=== PATIENT | male | born 1960 | race Two or more races ===

== ENCOUNTER 2019-02-15 19:10 | Inpatient (IN) | payer SELFPAY ==
[~2019-02-15] VITALS: Ht 167.6 cm; Wt 77.1 kg
[2019-02-15 19:30] VITALS: BP 123/85
[2019-02-15] MEDS ORDERED: Morphine Sulfate 4mg/ml Inj (IV USE ONLY) IVP ONE ×2 (19:30→20:15)
[2019-02-15] MEDS ORDERED: Isovue-300 100ml vial INJ PRN (19:30)
--- NOTE | 2019-02-15 19:30 | NUR ---
ED Nurse Note: Patient walked in to ER from home c/o severe abdominal and anal pain 06/01. Per patient he had too much cocaine las 2 days, and that is why he has severe abdominal pain. Patient states that he has laceration on his penis due to friquent masturbation, and laceration on his anus due to insertion light bulb inside of his rectum 2 days ago. AAO x4, VSS at this time, skin is dry warm to touch. Patient's anus was assessed by RN, no laceration noticed. Addendum: 02/15/19 at 2130 by KHANH Patient also states that light bulb broke while in rectum.
--- NOTE | 2019-02-15 19:53 | Emergency Room Report ---
History of Present Illness General Chief Complaint: Abdominal Pain Source: Patient Present Illness HPI The patient presents with abdominal and rectal pain. Apparently he was masturbating using a light bulb inserting in his rectum and it broke two days ago. He has had rectal pain and abdominal pain since that time. Denies any fevers or chills. There is been some rectal bleeding. He reports the pain 9/ 10 at this time and constant. He also has pain diffusely through his abdomen. He denies any vomiting. There is no chest pain. The patient also admits to abusing crack cocaine. Denies suicidal or homicidal ideation at this time. He did try to kill himself in 2000 by jumping off a building and fracturing his back. No fevers, chills, chest pain, palpitations, nausea, vomiting, dysuria, shortness of breath, visual changes, headache. 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 Nursing Documentation: PMH: Agreed; PSxH: Agreed Nursing Documentation-PMH Past Medical History: No Stated History Review of Systems All Other Systems: negative except mentioned in HPI Physical Exam Vital Signs Date Time Temp Pulse Resp B/P (MAP) Pulse Ox O2 Delivery O2 Flow Rate FiO2 02/15/19 19:15 97.5 67 18 123/85 (98) 96 Room Air Sp02 EP Interpretation: reviewed, normal General Appearance: well appearing, no apparent distress, GCS 15 Head: normocephalic Eyes: bilateral eye PERRL, bilateral eye conjunctivae pale ENT: moist mucus membranes Neck: supple Respiratory: lungs clear, normal breath sounds Cardiovascular #1: regular rate, rhythm Cardiovascular #2: 2+ radial (R) Gastrointestinal: normal inspection, normal bowel sounds, no mass, non- distended, no guarding, no rebound, tenderness - Diffuse Rectal: decreased tone, heme positive stool, hemorrhoids, other - Rectal tenderness Genitourinary: no CVA tenderness Musculoskeletal: back normal, gait/station normal, normal range of motion Neurologic: alert, oriented x3, grossly normal Psychiatric: mood/affect normal, no suicidal/homicidal ideation Skin: normal inspection, warm/dry Medical Decision Making Diagnostic Impression: Primary Impression: Rectal trauma Qualified Codes: S36.60XA - Unspecified injury of rectum, initial encounter Additional Impression: Cocaine abuse ER Course Patient presents with abdominal and rectal pain with rectal trauma. Differential includes bowel perforation, rectal trauma, abscess, foreign body amongst others. Patient will be evaluated week EKG, chest x-ray, CT of the abdomen and pelvis and labs. The patient will receive IV hydration and analgesia. Antibiotics may be indicated. Abdomen is non-surgical at this time. EKG NSR. Chest x-ray with pleural disease right side. Labs with normal white count. Tox positive for cocaine. CT the abdomen as of her duodenal thickening no mention of rectal masses or free air. Analgesia administered as well as IV hydration. In addition IV antibiotics begun. Rectal lidocaine inserted. Due to the nature of the history of the injury the patient is admitted for observation. Dr. Lopez and Dr. Soria were contacted. Laboratory Tests Test 02/15/19 19:25 02/15/19 19:40 Sodium Level 139 MMOL/L (136-145) Potassium Level 4.4 MMOL/L (3.5-5.1) Chloride Level 107 MMOL/L (98-107) Carbon Dioxide Level 28 MMOL/L (21-32) Anion Gap 5 mmol/L (5-15) Blood Urea Nitrogen 11 mg/dL (7-18) Creatinine 0.7 MG/DL (0.55-1.30) Estimate Glomerular Filtration Rate > 60 mL/min (>60) Glucose Level 101 MG/DL (74-106) Calcium Level 8.7 MG/DL (8.5-10.1) Total Bilirubin 0.5 MG/DL (0.2-1.0) Aspartate Amino Transferase (AST) 34 U/L (15-37) Alanine Aminotransferase (ALT) 46 U/L (12-78) Alkaline Phosphatase 77 U/L (46-116) Total Creatine Kinase 151 U/L (26-308) Total Protein 6.3 G/DL (6.4-8.2) L Albumin 3.1 G/DL (3.4-5.0) L Globulin 3.2 g/dL Albumin/Globulin Ratio 1.0 (1.0-2.7) Lipase 219 U/L (73-393) Serum Alcohol < 3 mg/dL White Blood Count 4.1 K/UL (4.8-10.8) L Red Blood Count 4.72 M/UL (4.70-6.10) Hemoglobin 14.9 G/DL (14.2-18.0) Hematocrit 42.1 % (42.0-52.0) Mean Corpuscular Volume 89 FL (80-99) Mean Corpuscular Hemoglobin 31.6 PG (27.0-31.0) H Mean Corpuscular Hemoglobin Concent 35.4 G/DL (32.0-36.0) Red Cell Distribution Width 10.4 % (11.6-14.8) L Platelet Count 231 K/UL (150-450) Mean Platelet Volume 6.2 FL (6.5-10.1) L Neutrophils (%) (Auto) 57.4 % (45.0-75.0) Lymphocytes (%) (Auto) 28.5 % (20.0-45.0) Monocytes (%) (Auto) 10.7 % (1.0-10.0) H Eosinophils (%) (Auto) 2.0 % (0.0-3.0) Basophils (%) (Auto) 1.4 % (0.0-2.0) Prothrombin Time 10.4 SEC (9.30-11.50) Prothrombin Time INR 1.0 (0.9-1.1) PTT 27 SEC (23-33) Urine Color Yellow Urine Appearance Clear Urine pH 6.5 (4.5-8.0) Urine Specific [place] 1.030 (1.005-1.035) Urine Protein 1+ (NEGATIVE) H Urine Glucose (UA) Negative (NEGATIVE) Urine Ketones 1+ (NEGATIVE) H Urine Blood 1+ (NEGATIVE) H Urine Nitrite Negative (NEGATIVE) Urine Bilirubin Negative (NEGATIVE) Urine Urobilinogen 4 MG/DL (0.0-1.0) H Urine Leukocyte Esterase Negative (NEGATIVE) Urine RBC 5-10 /HPF (0 - 0) H Urine WBC 0 /HPF (0 - 0) Urine Squamous Epithelial Cells Occasional /LPF Urine Bacteria Few /HPF (NONE) Troponin I 0.000 ng/mL (0.000-0.056) Urine Opiates Screen Negative (NEGATIVE) Urine Barbiturates Screen Negative (NEGATIVE) Phencyclidine (PCP) Screen Negative (NEGATIVE) Urine Amphetamines Screen Negative (NEGATIVE) Urine Benzodiazepines Screen Negative (NEGATIVE) Urine Cocaine Screen Positive (NEGATIVE) H Urine Marijuana (THC) Screen Negative (NEGATIVE) EKG Diagnostic Results Rate: normal Rhythm: NSR ST Segments: no acute changes Rhythm Strip Diag. Results EP Interpretation: yes Rhythm: NSR, no PVC's, no ectopy Chest X-Ray Diagnostic Results Chest X-Ray Diagnostic Results : Chest X-Ray Ordered: Yes # of Views/Limited/Complete: 1 View Indication: Other EP Interpretation: Yes Interpretation: no effusion, no pneumothorax, other - pleural process R with atelectasis Impression: Other Electronically Signed by: Electronically signed by Chaitanya Carter MD CT/MRI/US Diagnostic Results CT/MRI/US Diagnostic Results : Imaging Test Ordered: abd/pelvis Impression IMPRESSION: No acute findings appreciated. Mild thickening of the wall the distal esophagus. Consider EGD for further evaluation. Basilar atelectasis Normal appendix Left inguinal hernia containing fat. Spinal surgery as described above. Prominence of the duodenal wall which may be due to under distention. EGD could be performed for further evaluation of this. Status: improved Disposition: PLACE IN OBSERVATION Condition: Serious Chaitanya Carter MD Feb 15, 2019 19:53
[2019-02-15 19:57] LABS: APPEARANCE,URINE CLEAR; BILIRUBIN, URINE NEGATIVE (NEGATIVE); GLUCOSE, URINE (UA) NEGATIVE (NEGATIVE); KETONES,URINE 1+ (NEGATIVE); LEUKOCYTE ESTERASE ,URINE NEGATIVE (NEGATIVE); NITRITE,URINE NEGATIVE (NEGATIVE); PH,URINE 6.5 (4.5-8.0); PROTEIN,URINE 1+ (NEGATIVE); UROBILINOGEN,URINE 4 MG/DL (0.0-1.0)
[2019-02-15 20:00] LABS: BASOPHILS % (AUTO) 1.4 % (0.0-2.0); HEMATOCRIT 42.1 % (42.0-52.0); HEMOGLOBIN 14.9 G/DL (14.2-18.0); LYMPHOCYTES % (AUTO) 28.5 % (20.0-45.0); MEAN CORPUSCULAR VOLUME 89 FL (80-99); MONOCYTES % (AUTO) 10.7 % (1.0-10.0); NEUTROPHILS % (AUTO) 57.4 % (45.0-75.0); PLATELET COUNT 231 K/UL (150-450); RED BLOOD COUNT 4.72 M/UL (4.70-6.10); RED CELL DISTRIBUTION WIDTH 10.4 % (11.6-14.8); WHITE BLOOD COUNT 4.1 K/UL (4.8-10.8)
[2019-02-15 20:06] LABS: COLOR,URINE YELLOW
[2019-02-15 20:19] LABS: ALANINE AMINOTRANSFERASE 46 U/L (12-78); ALBUMIN 3.1 G/DL (3.4-5.0); ALKALINE PHOSPHATASE 77 U/L (46-116); ANION GAP 5 mmol/L (5-15); ASPARTATE AMINO TRANSFERASE 34 U/L (15-37); BILIRUBIN,TOTAL 0.5 MG/DL (0.2-1.0); BLOOD UREA NITROGEN 11 mg/dL (7-18); CALCIUM 8.7 MG/DL (8.5-10.1); CARBON DIOXIDE 28 MMOL/L (21-32); CHLORIDE 107 MMOL/L (98-107); CREATINE KINASE 151 U/L (26-308); CREATININE 0.7 MG/DL (0.55-1.30); POTASSIUM 4.4 MMOL/L (3.5-5.1); SODIUM 139 MMOL/L (136-145)
[2019-02-15 20:56] VITALS: BP 134/80
[2019-02-15] MEDS ORDERED: Lidocaine HCl 2% Jelly 6ml Tube TOPIC ONE (22:15)
[2019-02-15] MEDS ORDERED: Piperacillin/Tazobactam 3.375 GM in NS 110 ML IVPB ONE (22:30)
[2019-02-15 22:40] VITALS: BP 135/75
--- NOTE | 2019-02-15 22:42 | NUR ---
ED Nurse Note: Patient is in the bed, geting antibiotic, states that abdominal pain went away, but his rectum still hurting him. AAO x4, VSS at this time.
--- NOTE | 2019-02-15 23:53 | NUR ---
NURSE NOTES: Received telephone report from ALICIA Garcia
[2019-02-16] VITALS (7 sets, daily range): BP systolic 99–135; BP diastolic 70–84
--- NOTE | 2019-02-16 00:10 | NUR ---
NURSE NOTES: Received pt from ED via syd. Pt in bed, a&ox4, in room air. No s/s of acute distress & no c/o pain at this time. Pt belongings signed & accounted for. Skin check done; rectum area intact. will be here per pt. VSS. Not taking any home meds per pt & no PMH except for cocaine use. Oriented to hospital room. Bedside supplies given. Called Dr. Lopez for admission orders. Will continue to monitor.
--- NOTE | 2019-02-16 00:16 | NUR ---
ED Nurse Note: Patient was admited to [facility] for observation due to anal trauma, and abdominal pain. AAO x4, VSS at this time, skin warm to touch. Patient wad [facility], with all belongings.
[2019-02-16] MEDS ORDERED: DiphenhydrAMINE 50mg/ml Inj IVP PRN (00:45)
[2019-02-16] MEDS ORDERED: UNOBMED (01:02)
[2019-02-16] MEDS: Morphine Sulfate 2mg/ml Inj(IV/IM USE ONLY) IVP PRN ×4 (01:23→20:51)
--- NOTE | 2019-02-16 01:40 | NUR ---
NURSE NOTES: MRSA, VRE/CRE swabs done; sent down to lab.
[2019-02-16] MEDS ORDERED: Zosyn 3.375gm inj ONE (04:53)
[2019-02-16] MEDS: Piperacillin/Tazobactam 3.375 GM in NS 110 ML IVPB SCH ×2 (05:26→15:06)
--- NOTE | 2019-02-16 07:02 | NUR ---
NURSE NOTES:BEDSIDE ROUNDS WITH OUTGOING RN.(JOEL),PT. AWAKE,A/OX4,ROOM AIR,COMPLAINING OF RECTAL PAIN 05/02,WAS JUST MEDICATED BY NIGHT RN.IV SITE INTACT. AT BEDSIDE FOR SUPPORTIVE CARE. WILL CONTINUE PLAN OF CARE.
--- NOTE | 2019-02-16 07:02 | NUR ---
HAND-OFF: Report given to ALICIA Marshall. Pt in stable condition. Rounds done.
--- NOTE | 2019-02-16 09:17 | Diagnostic Imaging Report ---
Indication: Abdominal pain Technique: Continuous helical transaxial imaging of the abdomen and pelvis was obtained from the lung bases to the pubic symphysis during intravenous contrast administration. Coronal 2-D reformats were also obtained. Study obtained in a Siemens sensation [address] Automatic Exposure Control was utilized. Total Dose length Product (DLP): 736.[address] Dose Index Volume (CTDIvol): 12.77 mGy Comparison: None Findings: Linear opacities are noted at the lung bases likely atelectasis. There is a mild thickening of the wall the visualized distal esophagus. There is also apparent thickening of the wall the duodenum which could be due to under distention. Gallbladder is unremarkable. There is no hydronephrosis. Both kidneys enhance normally. The spleen is normal in size and attenuation. Liver is unremarkable. Pancreas is unremarkable. There is no adrenal mass. There is a small left inguinal hernia containing fat. Appears to be a direct hernia, medial to the epigastric artery and vein. The appendix is seen and appears normal. Bowel gas pattern appears nonobstructive. Focal fat noted in the liver near the falciform ligament. Previous fusion hardware noted within the lateral left sided compression plate and vertebral screws at L1 and L3. There is a implanted bone graft which serves as a buttress within the L2 vertebral location.. IMPRESSION: No acute findings appreciated. Mild thickening of the wall the distal esophagus. Consider EGD for further evaluation. Basilar atelectasis Normal appendix Left inguinal hernia containing fat. Spinal surgery as described above. Prominence of the duodenal wall which may be due to under distention. EGD could be performed for further evaluation of this. [facility] has communicated the preliminary results to the Emergency Department. Their findings are largely concordant with this report. The CT scanner at [facility] is accredited by the [employer] and the scans are performed using dose optimization techniques as appropriate to a performed exam including Automatic Exposure control.
--- NOTE | 2019-02-16 09:47 | Diagnostic Imaging Report ---
Indication: Chest pain Comparison: None A single view chest radiograph was obtained. Findings: There is a linear vertical density in the right lung which may be scarring. Heart is normal size. Bones are unremarkable. Costophrenic angles are sharp. IMPRESSION: Density in the right lung probably scarring or atelectasis
[2019-02-16 11:14] LABS: BASOPHILS % (AUTO) 0.7 % (0.0-2.0); EOSINOPHILS % (AUTO) 2.1 % (0.0-3.0); HEMATOCRIT 39.6 % (42.0-52.0); HEMOGLOBIN 13.7 G/DL (14.2-18.0); LYMPHOCYTES % (AUTO) 25.5 % (20.0-45.0); MEAN CORPUSCULAR VOLUME 89 FL (80-99); MONOCYTES % (AUTO) 9.2 % (1.0-10.0); NEUTROPHILS % (AUTO) 62.5 % (45.0-75.0); PLATELET COUNT 224 K/UL (150-450); RED BLOOD COUNT 4.46 M/UL (4.70-6.10); RED CELL DISTRIBUTION WIDTH 11.1 % (11.6-14.8); WHITE BLOOD COUNT 5.2 K/UL (4.8-10.8)
--- NOTE | 2019-02-16 12:23 | NUR ---
NURSE NOTES:SEEN B Y DR. MARTINEZ/RAJESH,NO SURGERY INDICATED.
[2019-02-16] MEDS ORDERED: Lidocaine HCl 2% Jelly 6ml Tube TOPIC PRN ×2 (14:30→22:30)
--- NOTE | 2019-02-16 14:48 | Consultation ---
History of Present Illness General Date patient seen: Feb 16, 2019 Reason for Hospitalization: Abdominal Pain Present Illness HPI This is a 59-year-old male who smokes crack that presented to the emergency department at [facility] complaining of rectal pain. Per patient 2 days ago he was smoking crack and out of his mind where he experimented with a light bulb in his rectal area potentially attempting to place it within his rectum. Unfortunately the light bulb broke causing extreme pain and multiple scars and bruises. Patient attempted to live with the pain but states it is been worsening over the past 2 days and came to the emerge department for evaluation. States he has had a bowel movement and it does not hurt with bowel movement. Denies any current bleeding. Only noted bleeding immediately after breaking the light bulb. No nausea vomiting fever chills. Labs identified. Surgery called to evaluate. Patient seen, patient evaluated, chart reviewed. Patient states perirectal area very tender from multiple healing lacerations Allergies: Coded Allergies: No Known Allergies (Unverified , 02/15/19) Medication History Miscellaneous Medications Unable to Obtain Medications (Unable To Obtain Meds), (Reported) Patient History History Provided By: Patient, Family Member, Medical Record, PMD Healthcare decision maker Resuscitation status Full Code Advanced Directive on File No Past Medical/Surgical History Past Medical/Surgical History: (1) Rectal trauma (2) Cocaine abuse Review of Systems Review of Symptoms General ROS: no weight loss or fever Psychological ROS: no depression or mood changes, no memory loss Ophthalmic ROS: no visual changes or eye irritation ENT ROS: no nasal congestion, hearing loss, dizziness Allergy and Immunology ROS: no allergic symptoms or urticaria Hematological and Lymphatic ROS: no swollen glands, unusual bleeding or bruising Endocrine ROS: no polyuria, polydipsia, weight changes, temperature intolerance Respiratory ROS: no cough, shortness of breath, or wheezing Cardiovascular ROS: no chest pain or dyspnea on exertion Gastrointestinal ROS: denies abdominal pain, no bright red blood in stool. Musculoskeletal ROS: no myalgias or arthralgias Neurological ROS: no TIA or stroke symptoms Dermatological ROS: no new or changing skin lesions, rashes or pruritis Physical Exam Physical Exam General appearance: alert, cooperative, no distress, appears stated age Head: Normocephalic, without obvious abnormality, atraumatic Eyes: conjunctivae/corneas clear. PERRL, EOM's intact. Fundi benign Throat: Lips, mucosa, and tongue normal. Teeth and gums normal Neck: supple, symmetrical, trachea midline, no adenopathy, thyroid: not enlarged, symmetric, no tenderness/mass/nodules, no carotid bruit and no JVD Lungs: clear to auscultation bilaterally Heart: regular rate and rhythm, S1, S2 normal, no murmur, click, rub or gallop Abdomen: soft, non-tender. Bowel sounds normal. No masses, no organomegaly Extremities: extremities normal, atraumatic, no cyanosis or edema Pulses: 2+ and symmetric Skin: Skin color, texture, turgor normal. No rashes or lesions Neurologic: Grossly normal Rectal: multiple deven-rectal small superficial healing lacerations Last 24 Hour Vital Signs Date Time Temp Pulse Resp B/P (MAP) Pulse Ox O2 Delivery O2 Flow Rate FiO2 02/16/19 11:43 97.8 63 18 102/71 (81) 95 02/16/19 08:00 97.7 75 18 99/70 (80) 97 02/16/19 07:45 Room Air 02/16/19 04:50 98.3 66 17 111/78 (89) 97 02/16/19 01:03 Room Air 02/16/19 00:15 98.1 69 16 122/84 (97) 97 02/16/19 00:14 97.5 77 16 135/75 100 Room Air 02/16/19 00:14 97.5 77 16 135/75 100 Room Air 02/15/19 22:40 97.5 77 16 135/75 100 Room Air 02/15/19 20:56 97.5 73 18 134/80 100 Room Air 02/15/19 20:17 97.5 02/15/19 20:17 97.5 02/15/19 19:30 67 18 Room Air 02/15/19 19:30 97.5 67 18 123/85 96 Room Air 02/15/19 19:15 97.5 67 18 123/85 (98) 96 Room Air Intake and Output 02/15/19 02/16/19 19:00 07:00 Intake Total 800 ml Output Total 600 ml Balance 200 ml Intake Oral 800 ml Output Urine Total 600 ml # Voids 4 Laboratory Tests Test 02/15/19 19:25 02/15/19 19:40 02/16/19 11:02 Sodium Level 139 MMOL/L (136-145) Potassium Level 4.4 MMOL/L (3.5-5.1) Chloride Level 107 MMOL/L (98-107) Carbon Dioxide Level 28 MMOL/L (21-32) Anion Gap 5 mmol/L (5-15) Blood Urea Nitrogen 11 mg/dL (7-18) Creatinine 0.7 MG/DL (0.55-1.30) Estimat Glomerular Filtration Rate > 60 mL/min (>60) Glucose Level 101 MG/DL (74-106) Calcium Level 8.7 MG/DL (8.5-10.1) Total Bilirubin 0.5 MG/DL (0.2-1.0) Aspartate Amino Transf (AST/SGOT) 34 U/L (15-37) Alanine Aminotransferase (ALT/SGPT) 46 U/L (12-78) Alkaline Phosphatase 77 U/L (46-116) Total Creatine Kinase 151 U/L (26-308) Total Protein 6.3 G/DL (6.4-8.2) L Albumin 3.1 G/DL (3.4-5.0) L Globulin 3.2 g/dL Albumin/Globulin Ratio 1.0 (1.0-2.7) Lipase 219 U/L (73-393) Serum Alcohol < 3 mg/dL White Blood Count 4.1 K/UL (4.8-10.8) L 5.2 K/UL (4.8-10.8) Red Blood Count 4.72 M/UL (4.70-6.10) 4.46 M/UL (4.70-6.10) L Hemoglobin 14.9 G/DL (14.2-18.0) 13.7 G/DL (14.2-18.0) L Hematocrit 42.1 % (42.0-52.0) 39.6 % (42.0-52.0) L Mean Corpuscular Volume 89 FL (80-99) 89 FL (80-99) Mean Corpuscular Hemoglobin 31.6 PG (27.0-31.0) H 30.8 PG (27.0-31.0) Mean Corpuscular Hemoglobin Concent 35.4 G/DL (32.0-36.0) 34.7 G/DL (32.0-36.0) Red Cell Distribution Width 10.4 % (11.6-14.8) L 11.1 % (11.6-14.8) L Platelet Count 231 K/UL (150-450) 224 K/UL (150-450) Mean Platelet Volume 6.2 FL (6.5-10.1) L 6.5 FL (6.5-10.1) Neutrophils (%) (Auto) 57.4 % (45.0-75.0) 62.5 % (45.0-75.0) Lymphocytes (%) (Auto) 28.5 % (20.0-45.0) 25.5 % (20.0-45.0) Monocytes (%) (Auto) 10.7 % (1.0-10.0) H 9.2 % (1.0-10.0) Eosinophils (%) (Auto) 2.0 % (0.0-3.0) 2.1 % (0.0-3.0) Basophils (%) (Auto) 1.4 % (0.0-2.0) 0.7 % (0.0-2.0) Prothrombin Time 10.4 SEC (9.30-11.50) Prothromb Time International Ratio 1.0 (0.9-1.1) Activated Partial Thromboplast Time 27 SEC (23-33) Urine Color Yellow Urine Appearance Clear Urine pH 6.5 (4.5-8.0) Urine Specific [place] 1.030 (1.005-1.035) Urine Protein 1+ (NEGATIVE) H Urine Glucose (UA) Negative (NEGATIVE) Urine Ketones 1+ (NEGATIVE) H Urine Blood 1+ (NEGATIVE) H Urine Nitrite Negative (NEGATIVE) Urine Bilirubin Negative (NEGATIVE) Urine Urobilinogen 4 MG/DL (0.0-1.0) H Urine Leukocyte Esterase Negative (NEGATIVE) Urine RBC 5-10 /HPF (0 - 0) H Urine WBC 0 /HPF (0 - 0) Urine Squamous Epithelial Cells Occasional /LPF Urine Bacteria Few /HPF (NONE) Troponin I 0.000 ng/mL (0.000-0.056) Urine Opiates Screen Negative (NEGATIVE) Urine Barbiturates Screen Negative (NEGATIVE) Phencyclidine (PCP) Screen Negative (NEGATIVE) Urine Amphetamines Screen Negative (NEGATIVE) Urine Benzodiazepines Screen Negative (NEGATIVE) Urine Cocaine Screen Positive (NEGATIVE) H Urine Marijuana (THC) Screen Negative (NEGATIVE) Microbiology Date/Time Source Procedure Growth Status 02/16/19 01:40 Rectum Received Height (Feet): 5 Height (Inches): 6.00 Weight (Pounds): 170 Medications Current Medications Medications (Trade) Dose Ordered Sig/Carola Route PRN Reason Start Time Stop Time Status Last Admin Dose Admin Barium Sulfate (Readi-Cat 2) 450 ml NOW PRN ORAL Radiology Procedure 02/15/19 19:30 02/17/19 19:26 Diphenhydramine HCl (Benadryl) 25 mg Q6H PRN IVP Itching 02/16/19 00:45 03/18/19 00:44 Iopamidol (Isovue-300 100ml) 100 ml NOW PRN INJ Radiology Procedure 02/15/19 19:30 02/17/19 19:29 Lidocaine HCl (Xylocaine Jelly 2%) 1 applic Q4H PRN TOPIC ANAL PAIN 02/16/19 14:30 03/18/19 14:29 Metronidazole 100 ml @ 100 mls/hr Q8HR IVPB 02/16/19 06:00 02/23/19 05:59 02/16/19 14:17 Morphine Sulfate (Morphine Sulfate) 2 mg Q4H PRN IVP For Pain 02/16/19 00:45 02/23/19 00:44 02/16/19 11:07 Ondansetron HCl (Zofran) 4 mg Q6H PRN IVP Nausea & Vomiting 02/16/19 00:45 03/18/19 00:44 Piperacillin Sod/ Tazobactam Sod 3.375 gm/Sodium Chloride 110 ml @ 27.5 mls/hr EVERY 8 HOURS IVPB 02/16/19 06:00 02/21/19 05:59 02/16/19 05:26 Assessment/Plan Problem List: (1) Cocaine abuse ICD Codes: F14.10 - Cocaine abuse, uncomplicated SNOMED: 62405742 (2) Rectal trauma Assessment & Plan: 59-year-old male with rectal trauma while on crack cocaine. Lightbulb apparently shattered while he was read inserted into his anus. Resulting in multiple perirectal superficial lacerations. No nausea vomiting fever chills. No current bleeding. No pain with bowel movements. Was not able to insert the light bulb and fortunately Wound evaluated bedside and superficial lacerations healing no signs of active infection Digital rectal exam okay Lidocaine jelly perirectal cream as needed discomfort Stool softener Okay to discharge from surgical standpoint Outpatient follow-up Thank you ICD Codes: S36.60XA - Unspecified injury of rectum, initial encounter SNOMED: 336359603 Qualifiers: Qualified Codes: S36.60XA - Unspecified injury of rectum, initial encounter Nolan Soria Feb 16, 2019 14:48
--- NOTE | 2019-02-16 15:21 | NUR ---
CASE MANAGEMENT:REVIEW 59 YR OLD MALE PRESENTED TO ER CC: ABDOMINAL AND ANAL PAIN SI:RECTAL TRAUMA. COCAINE ABUSE 97.5 67 18 123/85 96% ON RA URINE(+) COCAINE IS: IV ZOFRAN IV MORPHINE X2 1L NS BOLUS IV FLAGYL IV ZOSYN CT ABD/PELVIS CHEST XRAY : TO MED/SURG 3EAST PLAN: SURGICAL CONSULT
[2019-02-16] MEDS ORDERED: HYDROcodone/Acetamin 5/325 tab ORAL PRN (19:15)
--- NOTE | 2019-02-16 19:16 | NUR ---
HAND-OFF: Report given to JOEL VARGAS.PATIENT STABLE.
--- NOTE | 2019-02-16 19:30 | NUR ---
NURSE NOTES: Received report & pt from ALICIA Ramirez. Pt lying in bed, a&ox4, in room air, family member at bedside. No s/s of acute distress & c/o 8/10 abd pain. Will give PRN pain med when due & pt verbalized understanding. IV site x2 intact & S/L'd. Bed in lowest position, call light within reach. Will continue to monitor.
--- NOTE | 2019-02-16 20:00 | History and Physical Report ---
DATE OF ADMISSION: 02/15/2019 REASON FOR ADMISSION: Rectal pain and bleeding. HISTORY OF PRESENT ILLNESS: The patient is a 59-year-old [place] male presented to the emergency room complaining of rectal pain of 2 to 3 days duration. He notes that he was smoking crack for the past couple of days and experimented sexually by placing the light bulb in his rectal area. He did not put it inside his rectum but just on the outside area where it broke and caused some bleeding and subsequent extreme pain. The pain has worsened prompting him to seek medical attention. He denies any pain in any portion of the bulb inside his rectal area. The patient has not had any fever, chills or other constitutional symptoms. PAST MEDICAL HISTORY: Otherwise unremarkable. SOCIAL HISTORY: He admits to periodic cocaine use by smoking. ALLERGIES: None. MEDICATIONS: Reviewed. PAST MEDICAL HISTORY: Unremarkable. REVIEW OF SYSTEMS: Otherwise unremarkable. PHYSICAL EXAMINATION: VITAL SIGNS: Blood pressure 111/78, heart rate 66, respiratory rate 17, afebrile HEENT: Conjunctivae are pink. Oropharynx clear. NECK: Supple. LUNGS: Clear. CARDIAC: Regular. Normal S1, S2 with no murmur. ABDOMEN: Soft and nontender. EXTREMITIES: No edema. GENITOURINARY: Rectal area is examined and revealed some small lacerations but no active bleeding. LABORATORY AND DIAGNOSTIC DATA: Chemistry panel within normal limits. White count 4.1, hemoglobin 14.9. Alcohol level negative. Drug screen is positive for cocaine. IMPRESSION: 1. Cocaine abuse and intoxication. 2. Perirectal pain. 3. Perirectal trauma and lacerations. PLAN: 1. Discontinue antimicrobials. 2. Local wound care and pain control. 3. Counseling regarding cocaine abuse. Chaitanya Lopez M.D. DR: Nisha JOB#: [id number] CC: LUPILLO
[2019-02-17] VITALS: BP 113/74
[2019-02-17] MEDS ORDERED: Milk of Magnesia 30ml Ud ORAL PRN (00:30)
[2019-02-17] MEDS ORDERED: Milk of Magnesia 30ml Ud ORAL ONE (00:30)
[2019-02-17] MEDS: Morphine Sulfate 2mg/ml Inj(IV/IM USE ONLY) IVP PRN (03:19)
[2019-02-17 06:37] LABS: BASOPHILS % (AUTO) 0.7 % (0.0-2.0); EOSINOPHILS % (AUTO) 2.3 % (0.0-3.0); HEMATOCRIT 38.5 % (42.0-52.0); HEMOGLOBIN 13.4 G/DL (14.2-18.0); LYMPHOCYTES % (AUTO) 36.5 % (20.0-45.0); MEAN CORPUSCULAR VOLUME 89 FL (80-99); MONOCYTES % (AUTO) 7.4 % (1.0-10.0); NEUTROPHILS % (AUTO) 53.1 % (45.0-75.0); PLATELET COUNT 215 K/UL (150-450); RED BLOOD COUNT 4.31 M/UL (4.70-6.10); RED CELL DISTRIBUTION WIDTH 11.5 % (11.6-14.8); WHITE BLOOD COUNT 4.8 K/UL (4.8-10.8)
--- NOTE | 2019-02-17 07:21 | NUR ---
HAND-OFF: Report given to ALICIA Silva. Rounds done. Pt in stable condition.
--- NOTE | 2019-02-17 07:31 | NUR ---
NURSE NOTES: Patient is awake. In bathroom. Stable. Denies pain or SOB. All safety measures provided. Patient encouraged to use call light for assistance, verbalized understanding.Will continue to monitor.
[2019-02-17 08:00] VITALS: BP 118/79
[2019-02-17] MEDS ORDERED: Docusate 250mg cap ORAL SCH (09:00)
[2019-02-17] MEDS ORDERED: Augmentin 875mg Tab ORAL SCH (09:00)
[2019-02-17] MEDS ORDERED: NS 275ml ONE (09:29)
[2019-02-17] MEDS ORDERED: Tubing IV Secondary IV ONE (09:29)
--- NOTE | 2019-02-17 09:57 | NUR ---
NURSE NOTES: Patient discharged home as ordered. Stable. Denies pain or SOB. No IV access. Patient was given thorough discharge instructions by RN, patient verbalized understanding. Patient has all medications, medication teaching given to patient, verbalized understanding. Patient and patient's verbalized understanding about lidocaine application, pain medication, and antibiotic therapy. Skin is clean, dry, and intact. Patient assisted into private vehicle by . All belongings with patient.
--- NOTE | 2019-02-17 13:03 | Discharge Summary ---
Discharge Summary Discharge Summary _ DATE OF ADMISSION: 02/15/2019 DATE OF DISCHARGE: 02/17/2019 DISCHARGED BY: Dr. Lopez REASON FOR ADMISSION: 59 years old male with history of crack cocaine use, otherwise unremarkable past medical history, presented to emergency room complaining of rectal pain for 2 to 3 days. Apparently patient was masturbating using a light bulb, attempting to insert it in his rectum . Fortunately it broke outside of rectum . It cause some bleeding. Patient denied fever and chills. Pain reported 9 out of 10 constant and diffuse throughout the abdomen and rectum pain. He denied fever. No chest pain. Upon evaluation vital signs were stable. Laboratory work-up revealed no leukocytosis , hemoglobin 14.9 , hematocrit 42.1. Urine toxicology screen was positive for cocaine. Alcohol level was negative. Chemistry within normal limits. Chest x-ray demonstrated right lung scarring versus atelectasis. CT of the abdomen and pelvis demonstrated no acute findings. CONSULTANTS: surgery Dr. Bourgeois HOSPITAL COURSE: Patient admitted to medical surgical floor. Patient initially started on IV antibiotics. Surgeon seen and evaluated patient Per surgeon patient had rectal trauma while under the influence of crack cocaine. Wound evaluated by surgeon. No pain with bowel movement. Only superficial lacerations were noted , which were healing without signs of active infection. Digital rectal exam was stable. Lidocaine jelly perirectal cream provided as needed for comfort. Patient started on stool softener. Surgeon cleared patient for discharge with outpatient follow-up. Antibiotic discontinued. Pain management was addressed, and pain was controlled. Local wound care provided as per surgeon recommendation. Patient was counseled regarding cocaine abuse. Patient clinically stabilized and was ready for discharge home . Due to rapid and unexpected improvement in patient condition, patient was discharged in 1 day. FINAL DIAGNOSES: Cocaine abuse with intoxication Perirectal pain Perirectal trauma and laceration DISCHARGE MEDICATIONS: See Medication Reconciliation list. DISCHARGE INSTRUCTIONS: Patient was discharged home . Follow up with primary care provider in one week. I have been assigned to dictate discharge summary for this account. I was not involved in the patient's management. Meghan Eid NP Feb 17, 2019 13:03
--- NOTE | 2019-02-17 15:59 | Cardiology Report ---
APPROVED REPORT EKG Measurement Heart [id number] Normal sinus rhythm Normal ECG
== END 2019-02-17 10:00 | disposition home or self-care (01) | DRG 395 ==
LOC: EMR 19:45 → MERGE 21:13 → OBSVTOIN 21:13 → 3E 21:13 → EDBEDREQ 22:08 → 3E 02-16 00:25 → SDSOVERFLO 02-16 16:13 → 3E 02-16 16:17
DX: S36.63XA Laceration of rectum, initial encounter (principal); W25.XXXA Contact with sharp glass, initial encounter; F14.10 Cocaine abuse, uncomplicated; K62.89 Other specified diseases of anus and rectum
CPT/HCPCS: 36415; 71045; 74177; 80053; 80307; 80329; 81003; 82550; 83690; 84484; 85025; 85610; 85730; 86850; 86900; 86901; 87081; 93005; 96361; 96365; 96368; 96375; 96376; 99285; J2405